=== PATIENT | male | born 1965 | race African-American/Black ===

== ENCOUNTER 2020-10-01 07:00 | Emergency (ER) | payer OTHER ==
[~2020-10-01] VITALS: Ht 188 cm; Wt 86.2 kg
[2020-10-01 07:17] VITALS: BP 118/78
[2020-10-01] MEDS ORDERED: PERCOCET 10-321 EAC1 PO (07:21)
[2020-10-01] MEDS ORDERED: ONDANSETRON ODT4 MG PO (07:21)
[2020-10-01] MEDS ORDERED: PERCOCET 5-3251 EACH PO (07:40)
== END 2020-10-01 07:46 | disposition home or self-care (01) ==
LOC: M.ERS 07:00
DX: G89.29 Other chronic pain (principal); Z76.0 Encounter for issue of repeat prescription; Z85.46 Personal history of malignant neoplasm of prostate